=== PATIENT | male | born 1995 | race Caucasian/White ===

== ENCOUNTER 2018-04-06 13:06 | Emergency (ER) | payer SELFPAY ==
[~2018-04-06] VITALS: Ht 185.4 cm; Wt 88.0 kg
--- NOTE | 2018-04-06 13:10 | NUR ---
Presents to er c/o testicular pain - right testicle pain x 2 days; no dysuria. Seen in UC; given Rocephin IM and Zithromax PO x 1; unprotected sex 2 weeks. no trauma noted, no distress. breathing even and unlabored. safety and comfrot measures in place. awaiting md orders.
[2018-04-06 14:33] VITALS: BP 138/84
--- NOTE | 2018-04-06 14:35 | NUR ---
Patient discharged to home in stable condition. Written and verbal after care instructions given. Patient verbalizes understanding of instruction.
== END 2018-04-06 14:34 | disposition home or self-care (01) ==
LOC: ER 13:08
DX: N45.1 Epididymitis (principal); Z98.890 Other specified postprocedural states
CPT/HCPCS: 76870; 99284; A4606; Z7610